=== PATIENT | male | born 1950 | race Caucasian/White ===

== ENCOUNTER → 2021-06-14 19:44 | Outpatient (BNVA) | payer MEDICARE, OTHER, SELFPAY | PROVIDERS: Family Provider Family Medicine; PCP Family Medicine; Visit Provider Nurse Practitioner | DX: Z20.822 Contact with and (suspected) exposure to COVID-19 (principal) | CPT/HCPCS: 87635 ==

== ENCOUNTER 2021-06-17 10:41 | Outpatient (CLI) | payer MEDICARE, OTHER, SELFPAY ==
[2021-06-17 11:00] VITALS: BP 107/70; PULSE 87; RESP 17; TEMP 37.1; O2SAT 97; BMI 26.6
[2021-06-17 12:33] VITALS: BP 124/79; PULSE 94; RESP 17; TEMP 37.1; O2SAT 97
[2021-06-17 13:14] VITALS: BP 113/75; PULSE 94; PULSE 97; RESP 17; TEMP 37.1; O2SAT 95; O2SAT 97
== END 2021-06-17 10:42 | disposition home or self-care (01) ==
LOC: OPS 10:43
PROVIDERS: Family Provider Family Medicine; PCP Family Medicine; Visit Provider Nurse Practitioner Family
DX: U07.1 COVID-19 (principal)
CPT/HCPCS: 96365

== ENCOUNTER → 2022-01-04 13:29 | Outpatient (BNVA) | payer MEDICARE, OTHER, SELFPAY | PROVIDERS: Family Provider Family Medicine; PCP Family Medicine; Visit Provider Internal Medicine Cardiovascular Disease | DX: I25.10 Atherosclerotic heart disease of native coronary artery without angina pectoris (principal); I48.19 Other persistent atrial fibrillation; I50.22 Chronic systolic (congestive) heart failure; I25.5 Ischemic cardiomyopathy; E78.5 Hyperlipidemia, unspecified | CPT/HCPCS: 99213 ==

== ENCOUNTER → 2022-12-21 13:33 | Outpatient (BNVA) | payer MEDICARE, OTHER, SELFPAY | PROVIDERS: Family Provider Family Medicine; PCP Family Medicine; Referring Provider Family Medicine; Visit Provider Dermatology | DX: L57.0 Actinic keratosis (principal); S20.369A Insect bite (nonvenomous) of unspecified front wall of thorax, initial encounter; W57.XXXA Bitten or stung by nonvenomous insect and other nonvenomous arthropods, initial encounter; L81.4 Other melanin hyperpigmentation; L82.1 Other seborrheic keratosis; L57.8 Other skin changes due to chronic exposure to nonionizing radiation | CPT/HCPCS: 17004; 99203 ==

== ENCOUNTER → 2023-01-11 15:22 | Outpatient (BNVA) | payer MEDICARE, OTHER, SELFPAY | PROVIDERS: Family Provider Family Medicine; PCP Family Medicine; Visit Provider Internal Medicine | DX: I25.10 Atherosclerotic heart disease of native coronary artery without angina pectoris (principal); I48.19 Other persistent atrial fibrillation; I50.22 Chronic systolic (congestive) heart failure; I25.5 Ischemic cardiomyopathy; E78.5 Hyperlipidemia, unspecified | CPT/HCPCS: 99214 ==

== ENCOUNTER → 2023-05-24 15:45 | Outpatient (BNVA) | payer MEDICARE, OTHER, SELFPAY | PROVIDERS: Family Provider Family Medicine; PCP Family Medicine; Visit Provider Family Medicine | DX: E78.5 Hyperlipidemia, unspecified (principal); Z13.6 Encounter for screening for cardiovascular disorders; R35.1 Nocturia; I48.19 Other persistent atrial fibrillation; N40.0 Benign prostatic hyperplasia without lower urinary tract symptoms | CPT/HCPCS: 80053; 80061; 84153; 85025; 85610 ==

== ENCOUNTER → 2023-07-11 09:56 | Outpatient (BNVA) | payer MEDICARE, OTHER, SELFPAY | PROVIDERS: Family Provider Family Medicine; PCP Family Medicine; Visit Provider Family Medicine | DX: I48.19 Other persistent atrial fibrillation (principal) | CPT/HCPCS: 85610 ==

== ENCOUNTER → 2023-08-04 14:17 | Outpatient (BNVA) | payer MEDICARE, OTHER, SELFPAY | PROVIDERS: Family Provider Family Medicine; PCP Family Medicine; Visit Provider Nurse Practitioner Family | DX: I48.19 Other persistent atrial fibrillation (principal); K92.2 Gastrointestinal hemorrhage, unspecified; R53.83 Other fatigue; I50.22 Chronic systolic (congestive) heart failure | CPT/HCPCS: 83036; 85025; 85610; 85730 ==

== ENCOUNTER → 2023-08-17 14:07 | Outpatient (BNVA) | payer MEDICARE, OTHER, SELFPAY | PROVIDERS: Family Provider Family Medicine; PCP Family Medicine; Visit Provider Internal Medicine | DX: I25.118 Atherosclerotic heart disease of native coronary artery with other forms of angina pectoris (principal); I48.19 Other persistent atrial fibrillation; I50.22 Chronic systolic (congestive) heart failure; I25.5 Ischemic cardiomyopathy; E78.2 Mixed hyperlipidemia | CPT/HCPCS: 99214 ==

== ENCOUNTER → 2023-09-08 09:02 | Outpatient (BNVA) | payer MEDICARE, OTHER, SELFPAY | PROVIDERS: Family Provider Family Medicine; PCP Family Medicine; Visit Provider Family Medicine | DX: R30.0 Dysuria (principal); K92.2 Gastrointestinal hemorrhage, unspecified; Z13.6 Encounter for screening for cardiovascular disorders; E78.2 Mixed hyperlipidemia; M10.9 Gout, unspecified | CPT/HCPCS: 80053; 80061; 81000; 84550; 85025; 87086 ==

== ENCOUNTER → 2023-11-03 10:17 | Outpatient (BNVA) | payer MEDICARE, OTHER, SELFPAY | PROVIDERS: Family Provider Family Medicine; PCP Family Medicine; Visit Provider Family Medicine | DX: R53.83 Other fatigue (principal); M10.471 Other secondary gout, right ankle and foot; Z79.899 Other long term (current) drug therapy | CPT/HCPCS: 84403; 84443; 85025 ==

== ENCOUNTER → 2024-02-14 13:52 | Outpatient (BNVA) | payer MEDICARE, OTHER, SELFPAY | PROVIDERS: Family Provider Family Medicine | DX: E03.9 Hypothyroidism, unspecified (principal); I48.19 Other persistent atrial fibrillation | CPT/HCPCS: 80053; 84443; 85025 ==

== ENCOUNTER → 2024-02-29 15:30 | Outpatient (BNVA) | payer MEDICARE, OTHER, SELFPAY | PROVIDERS: Family Provider Family Medicine; Visit Provider Internal Medicine | DX: I25.118 Atherosclerotic heart disease of native coronary artery with other forms of angina pectoris (principal); I48.19 Other persistent atrial fibrillation; I50.22 Chronic systolic (congestive) heart failure; I25.5 Ischemic cardiomyopathy; E78.2 Mixed hyperlipidemia | CPT/HCPCS: 99214 ==

== ENCOUNTER → 2024-06-20 14:31 | Outpatient (BNVA) | payer MEDICARE, OTHER, SELFPAY | PROVIDERS: Family Provider Family Medicine; Visit Provider Nurse Practitioner Family | DX: L81.4 Other melanin hyperpigmentation (principal); L82.1 Other seborrheic keratosis; L57.8 Other skin changes due to chronic exposure to nonionizing radiation; D18.01 Hemangioma of skin and subcutaneous tissue; D48.5 Neoplasm of uncertain behavior of skin; L57.0 Actinic keratosis | CPT/HCPCS: 11102; 17000; 99213 ==

== ENCOUNTER → 2024-07-18 07:55 | Outpatient (BNVA) | payer MEDICARE, OTHER, SELFPAY | PROVIDERS: Family Provider Family Medicine; PCP Family Medicine; Visit Provider Dermatology | DX: L82.1 Other seborrheic keratosis (principal); R23.3 Spontaneous ecchymoses; C44.41 Basal cell carcinoma of skin of scalp and neck; L57.0 Actinic keratosis; L82.0 Inflamed seborrheic keratosis; L53.8 Other specified erythematous conditions; R20.8 Other disturbances of skin sensation; L29.89 Other pruritus; D48.5 Neoplasm of uncertain behavior of skin | CPT/HCPCS: 11102; 13121; 17004; 17110; 17311; 99213 ==

== ENCOUNTER → 2024-07-30 11:46 | Outpatient (BNVA) | payer MEDICARE, OTHER, SELFPAY | PROVIDERS: Family Provider Family Medicine; PCP Family Medicine; Visit Provider Dermatology | DX: L81.4 Other melanin hyperpigmentation (principal); L57.0 Actinic keratosis | CPT/HCPCS: 17000; 99212 ==

== ENCOUNTER → 2024-08-20 10:39 | Outpatient (BNVA) | payer MEDICARE, OTHER, SELFPAY | PROVIDERS: Family Provider Family Medicine; PCP Family Medicine; Visit Provider Family Medicine | DX: E78.2 Mixed hyperlipidemia (principal); E03.9 Hypothyroidism, unspecified; R35.1 Nocturia; N40.1 Benign prostatic hyperplasia with lower urinary tract symptoms | CPT/HCPCS: 80053; 80061; 84153; 84443 ==

== ENCOUNTER → 2024-08-30 14:23 | Outpatient (BNVA) | payer MEDICARE, OTHER, SELFPAY | PROVIDERS: Family Provider Family Medicine; PCP Family Medicine; Visit Provider Internal Medicine | DX: I25.118 Atherosclerotic heart disease of native coronary artery with other forms of angina pectoris (principal); I48.19 Other persistent atrial fibrillation; I50.22 Chronic systolic (congestive) heart failure; I25.5 Ischemic cardiomyopathy; E78.2 Mixed hyperlipidemia | CPT/HCPCS: 99214 ==

== ENCOUNTER → 2024-09-03 12:53 | Outpatient (BNVA) | payer MEDICARE, OTHER, SELFPAY | PROVIDERS: Family Provider Family Medicine; PCP Family Medicine; Visit Provider Dermatology | DX: L57.0 Actinic keratosis (principal) | CPT/HCPCS: 96573; J7308 ==

== ENCOUNTER 2024-10-02 08:47 | Outpatient (CLI) | payer MEDICARE, OTHER, SELFPAY ==
--- NOTE | 2024-10-02 09:02 | ECG_ITS ---
[employer] Test Date: 2024-10-02 Pat Name: Woodrow Pereira Department: Room: Gender: Male [employer]: : 1950 Requested By: Jimmy Charles Order Number: [id number] Lauri MD: Jimmy Charles M.D. Interpretive Statements EXERCISE MIBI EXERCISE DATA: The patient was exercised by Thai protocol. Baseline heart rate was 76 beats per minute. Baseline blood pressure was 120/88 millimeters of mercury. Maximal predicted heart rate was 146 beats per minute. Maximum heart rate achieved was 150, which was 102% of the maximum predicted heart rate. Maximum blood pressure was 140/75 millimeters of mercury. Total exercise time was 6 minutes. Maximum METs achieved was 7.0.The reason for ending the test was completion of protocol. The patient complained of shortness of breath during the stress test, which then resolved at the end of the test. ELECTROCARDIOGRAM: BASELINE: Showed atrial fibrillation, normal axis, no significant ST-T changes at the baseline noted. [] EXERCISE: At the peak exercise level, [] No significant ST-T changes suggestive of ischemia noted. [] RECOVERY: During the recovery period, heart rate dropped appropriately. No significant ST-T changes in the recovery suggestive of ischemia noted. [] CONCLUSION: 1. Exercise capacity is fair 2. Heart rate response was appropriate 3. Blood pressure response was appropriate 4. Symptoms not suggestive of ischemia. 5. Electrocardiogram portion of the stress test was not suggestive of ischemia. 6. Nuclear scan will be documented separately. Electronically Signed On 10-15-2024 10:53:04 CDT by Jimmy Charles M.D. [email or web address]
--- NOTE | 2024-10-02 09:03 | NMCV_ITS ---
NM srikanth perf SPECT r/s* [id number] Woodrow Pereira Age: 74 Gender: M : 1950 Exam Date: 10/02/2024 10:28 Ordering Phys: Jimmy Charles M.D ([email or web address]) Technologist: ASHU Sharma Exam Location: [facility] Indications: CP STRESS TEST [facility] IMAGE PROTOCOL Rest/Stress 1 Exercise Day Radiopharmaceutical Dose (mCi) Administration Site Administered by Rest: Tc-99m 10.9 IV ASHU Allen Sestamibi Stress:Tc-99m 32.5 IV ASHU Sharma Sestamidavid Rest: 02-Oct-2024 60 Discovery 630 Stress: 02-Oct-2024 15 Discovery 630 Images obtained in supine and prone position. Radiopharmaceutical was injected at 92 % maximum heart rate. SPECT RESULTS Technical Quality: Good Raw Data Analysis: Normal Image Corrections: No attenuation or motion correction applied Summed Stress Score: 3 Summed Rest Score: 9 Summed Difference Score: 0 PERFUSION FINDINGS There is a medium sized, fixed perfusion defecet in the apical lateral wall. This shows minimal improvement on stress imaging. This is consistent with medium sized area of prior infarct vs attenuation artifact in this wall. No evidence of ischemia. FUNCTIONAL RESULTS (calculated via Gated SPECT) Stress Image LV EF (%): 59 Stress EDV (mL):111 TID: 0.83 Stress ESV (mL):46 FUNCTIONAL FINDINGS: There is normal left ventricular systolic function. IMPRESSIONS 1. Medium sized area of prior infarct versus attenuation artifact is seen in apical lateral wall. No evidence of ischemia. 2. LV systolic function is normal. Jimmy Charles MD (Electronically Signed) Final Date: 03 October 2024 09:18 S
[2024-10-02 09:15] VITALS: BMI 27.3
[2024-10-02 11:34] VITALS: BP 131/69; PULSE 92
--- NOTE | 2024-10-02 13:30 | USCV_ITS ---
Woodrow Pereira Age: 74 Gender: M : 1950 Exam Date: 10/02/2024 09:23 Ordering Phys: Jimmy Chrales M.D ([email or web address]) Technologist: DAVINA [place] [facility] [place]: cp sob BP: 110 / 68 HR: 88 Rhythm: Sinus Technical Quality: Adequate MEASUREMENTS (Male / Female) Normal Values 2D ECHO LV Diastolic Diameter PLAX 5.7 cm 4.2 - 5.9 / 3.9 - 5.3 cm IVS Diastolic Thickness 0.9 cm 0.6 - 1.0 / 0.6 - 0.9 cm IVS Systolic Thickness 2.2 cm LVPW Diastolic Thickness 1.1 cm 0.6 - 1.0 / 0.6 - 0.9 cm LVPW Systolic Thickness 1.9 cm LVOT Diameter 2.0 cm LV Ejection Fraction 2D Teich 53.1 % LV Ejection Fraction MOD 4C 65.8 % LV Ejection Fraction MOD 2C 54.8 % LV Ejection Fraction 2C AL 57.2 % LA Diameter 4.9 cm RA Systolic Volume 4C AL 68.2 ml RA Systolic Volume 4C MOD 68.1 ml LA Sys Volume AL 68.0 cm cubed LA Sys Volume Index AL 34.2 cm cubed/m squared Aorta at Sinotubular Diameter 3.1 cm IVC Diameter 2.4 cm M-MODE LA Ao Ratio MM 2.0 AV Cusp Separation MM 0.9 cm DOPPLER AV Peak Velocity 93.0 cm/s LVOT Peak Velocity 60.0 cm/s AV Area Cont Eq vti 1.5 cm squared AV Area Cont Eq pk 2.0 cm squared MV Peak Velocity 71.0 cm/s MV Area PHT 4.4 cm squared Mitral E to A Ratio 2.3 TV Peak Velocity 175.0 cm/s TR Peak Velocity 209.5 cm/s TR Peak Gradient 17.6 mmHg TR Mean Velocity 171.0 cm/s TR Mean Gradient 13.3 mmHg TR Velocity Time Integral 69.1 cm TV Peak E Velocity 85.0 cm/s PV Peak Velocity 82.0 cm/s FINDINGS Left Ventricle Left ventricle is normal in size. LV systolic function is mildly hypokinetic with EF of 45-50%. Mild global hypokinesis. Right Ventricle Grossly normal Right Atrium Dilated Left Atrium Dilated Mitral Valve Structurally normal mitral valve. Mild mitral regurgitation. Aortic Valve Structurally normal aortic valve. Mild aortic regurgitation. Tricuspid Valve Mild tricuspid regurgitation. Pulmonary artery systolic pressure is normal. Pulmonic Valve Trace pulmonic regurgitation Pericardium Normal Aorta Normal in size IVC Not well visualized CONCLUSIONS LV systolic function is mildly reduced with EF of 45-50% Biatrial dilation Mild mitral regurgitation Mild aortic regurgitation Mild tricuspid regurgitation Trace pulmonic regurgitation Compared to prior echocardiogram from 2017, no significant changes are seen. Jimmy Charles MD (Electronically Signed) Final Date: 14 Oct 2024 14:54 S
== END 2024-10-02 08:48 | disposition home or self-care (01) ==
PROVIDERS: PCP Family Medicine; Visit Provider Internal Medicine
DX: R06.02 Shortness of breath (principal); R07.9 Chest pain, unspecified; R93.1 Abnormal findings on diagnostic imaging of heart and coronary circulation; I34.0 Nonrheumatic mitral (valve) insufficiency; I35.1 Nonrheumatic aortic (valve) insufficiency; I07.1 Rheumatic tricuspid insufficiency
CPT/HCPCS: 36415; 78452; 93017; 93306; 96375; A9500

== ENCOUNTER → 2024-12-06 11:32 | Outpatient (BNVA) | payer MEDICARE, OTHER, SELFPAY | PROVIDERS: PCP Family Medicine; Visit Provider Nurse Practitioner Family | DX: L57.8 Other skin changes due to chronic exposure to nonionizing radiation (principal); L98.1 Factitial dermatitis; L82.1 Other seborrheic keratosis; L81.4 Other melanin hyperpigmentation; X32.XXXA Exposure to sunlight, initial encounter; L57.0 Actinic keratosis; Z08 Encounter for follow-up examination after completed treatment for malignant neoplasm; Z85.828 Personal history of other malignant neoplasm of skin; D48.5 Neoplasm of uncertain behavior of skin | CPT/HCPCS: 11102; 17004; 69100; 99214 ==

== ENCOUNTER → 2025-03-13 11:23 | Outpatient (BNVA) | payer MEDICARE, OTHER, SELFPAY | PROVIDERS: PCP Family Medicine; Visit Provider Nurse Practitioner Family | DX: L57.8 Other skin changes due to chronic exposure to nonionizing radiation (principal); L98.1 Factitial dermatitis; L82.1 Other seborrheic keratosis; L81.4 Other melanin hyperpigmentation; X32.XXXA Exposure to sunlight, initial encounter; L57.0 Actinic keratosis; Z08 Encounter for follow-up examination after completed treatment for malignant neoplasm; Z85.828 Personal history of other malignant neoplasm of skin | CPT/HCPCS: 17004; 99214 ==

== ENCOUNTER → 2025-03-26 15:14 | Outpatient (BNVA) | payer MEDICARE, OTHER, SELFPAY | PROVIDERS: PCP Family Medicine; Visit Provider Family Medicine | DX: E03.9 Hypothyroidism, unspecified (principal) | CPT/HCPCS: 84439; 84443 ==